=== PATIENT | female | born 1970 | race Caucasian/White ===

== ENCOUNTER 2019-01-28 | Emergency (ER) | payer MEDICAID ==
[~2019-01-28] VITALS: Ht 170.2 cm; Wt 95.0 kg
[2019-01-28 01:27] LABS: CHLORIDE 104 mEq/L (98-107)
[2019-01-28 01:32] LABS: BASOPHILS % 0.9 % (0.0-2.0); EOSINOPHILS % 4.5 % (0.0-5.0); HEMATOCRIT. 36.5 % (36.0-48.0); HEMOGLOBIN. 12.4 g/dL (12.0-16.0); LYMPHOCYTES % 32.7 % (20.0-50.0); MEAN CORPUSCULAR HEMOGLOBIN 30.9 pg (28.0-32.0); MEAN PLATELET VOLUME 8.1 fl (7.4-10.4); MONOCYTES % 7.2 % (2.0-8.0); NEUTROPHILS % 54.7 % (40.0-76.0); PLATELET 320 x1000/uL (130-400); RED BLOOD CELL COUNT 4.01 mill/uL (4.2-5.4); RED CELL DISTRIBUTION WIDTH 14.8 % (11.6-14.6)
[2019-01-28] MEDS ORDERED: KETOROLAC 30MG/ML VIAL IV NR (02:30)
[2019-01-28] MEDS ORDERED: PROCHLORPERAZINE MALEATE 10MG TABLET PO NR (02:30)
[2019-01-28] MEDS ORDERED: DIPHENHYDRAMINE 25MG CAPSULE PO NR (02:30)
[2019-01-28 04:40] VITALS: BP 158/80
== END 2019-01-28 04:50 | disposition home or self-care (01) ==
LOC: ER 02:21
DX: R51 Headache (principal); R07.89 Other chest pain; R20.2 Paresthesia of skin
CPT/HCPCS: 36415; 71045; 80053; 83880; 84484; 85025; 93005; 96374; 99284; J1885; Q0163; Q0164